=== PATIENT | female | born 2000 | race Caucasian/White ===

== ENCOUNTER 2020-10-23 16:01 | Outpatient (CLI) | payer OTHER, SELFPAY | END 2020-10-23 16:02 | disposition home or self-care (01) | LOC: ANHCOVIDVC 16:01 | PROVIDERS: PCP Pediatrics | DX: Z23 Encounter for immunization (principal) | CPT/HCPCS: 0001A; 91300 ==

== ENCOUNTER 2020-11-13 16:00 | Outpatient (CLI) | payer OTHER, SELFPAY | END 2020-11-13 16:01 | disposition home or self-care (01) | LOC: ANHCOVIDVC 16:00 | PROVIDERS: PCP Pediatrics | DX: Z23 Encounter for immunization (principal) | CPT/HCPCS: 0002A; 91300 ==

== ENCOUNTER 2025-04-27 09:25 | Outpatient (CLI) | payer OTHER, SELFPAY ==
--- NOTE | ~2025-04-27 | US_ITS ---
EXAMINATION: US pelvic complete DATE: 04/27/2025 10:03 INDICATION: Excessive uterine bleeding. TECHNIQUE: Multiple transabdominal sonographic images of the pelvis were obtained. COMPARISON: None. FINDINGS: The uterus measures 7.5 x 3.2 x 4.7 cm. There is no free fluid in the pelvis. The endometrial complex measures 16 mm in thickness. The right ovary measures 5.1 x 3.8 x 4.5 cm. There is a 5.1 cm cystic mass with low-level echoes in right ovary, consistent with a hemorrhagic cyst. The left ovary measures 2.9 x 1.2 x 1.9 cm. There is normal vascular flow in the ovaries. IMPRESSION: 1. 5.1 cm hemorrhagic cyst in right ovary. Consider pelvis ultrasound in 6-12 weeks to confirm resolution. Reviewed, dictated and finalized at location E. IMPRESSION: 1. 5.1 cm hemorrhagic cyst in right ovary. Consider pelvis ultrasound in 6-12 w eeks to confirm resolution.
== END 2025-04-27 09:26 | disposition home or self-care (01) ==
DX: N93.8 Other specified abnormal uterine and vaginal bleeding (principal); N83.201 Unspecified ovarian cyst, right side
CPT/HCPCS: 76856